=== PATIENT | female | born 1955 | race Caucasian/White ===

== ENCOUNTER 2021-07-15 13:08 | Day surgery (SDC) | payer OTHER, BC ==
[2021-07-11 10:16] VITALS: BMI 29.2
[2021-07-15 12:07] VITALS: TEMP 97.8
[2021-07-15 12:42] VITALS: BP 126/80; PULSE 70
[~2021-07-15 13:08] MED LIST: BUPIVACAINE HCL/PF 0.75% 10 ML VIAL NR ONE; IOHEXOL 180 MG/1 ML ML IJ ONE; LIDOCAINE 1% P/F 10 MG/ML VIAL INF ONE
== END 2021-07-15 13:30 | disposition home or self-care (01) ==
LOC: JASU-SURG 13:08
PROVIDERS: ATTEND Pain Medicine Pain Medicine
PROC: BR16YZZ Fluoroscopy of Lumbar Facet Joint(s) using Other Contrast (ICD-10-PCS; 2021-07-15)
PROC: 3E0T3BZ Introduction of Anesthetic Agent into Peripheral Nerves and Plexi, Percutaneous Approach (ICD-10-PCS; principal; 2021-07-15 12:30)
DX: M47.816 Spondylosis without myelopathy or radiculopathy, lumbar region (principal)
CPT/HCPCS: 76000-TC-FY; J1100

== ENCOUNTER 2022-08-01 04:18 | Day surgery (SDC) | payer OTHER ==
[2022-07-31 09:59] VITALS: BMI 27.4
[~2022-08-01 04:18] MED LIST changes: +ACETAMINOPHEN 500 MG TABLET (FP) PO ONE; -BUPIVACAINE HCL/PF 0.75% 10 ML VIAL NR ONE; -IOHEXOL 180 MG/1 ML ML IJ ONE; -LIDOCAINE 1% P/F 10 MG/ML VIAL INF ONE
[2022-08-01 10:25] VITALS: RESP 18
[2022-08-01] MEDS ORDERED: LIDOCAINE 1% P/F 10 MG/ML VIAL INF ONE (11:11)
[2022-08-01] MEDS ORDERED: TRIAMCINOLONE ACET 40MG/1ML VIAL IM ONE ×2 (11:12→11:14)
[2022-08-01] MEDS ORDERED: IOHEXOL 180 MG/1 ML ML IJ ONE (11:12)
[2022-08-01] MEDS ORDERED: BUPIVACAINE HCL/PF 0.5% (5MG/ML) 10 ML VIAL IJ ONE (11:12)
[2022-08-01 11:43] VITALS: BP 120/70; PULSE 60; TEMP 97
== END 2022-08-01 11:43 | disposition home or self-care (01) ==
LOC: JASU-SURG 04:18
PROVIDERS: ATTEND Pain Medicine Pain Medicine
PROC: 3E0U3BZ Introduction of Anesthetic Agent into Joints, Percutaneous Approach (ICD-10-PCS; 2022-08-01)
PROC: 3E0U33Z Introduction of Anti-inflammatory into Joints, Percutaneous Approach (ICD-10-PCS; principal; 2022-08-01 11:30)
DX: M53.3 Sacrococcygeal disorders, not elsewhere classified (principal)
CPT/HCPCS: 76000-TC-FY

== ENCOUNTER 2022-09-12 04:20 | Day surgery (SDC) | payer OTHER ==
[2022-09-06 17:15] VITALS: BMI 28.3
[~2022-09-12 04:20] MED LIST changes: -ACETAMINOPHEN 500 MG TABLET (FP) PO ONE; +BUPIVACAINE HCL/PF 0.75% 10 ML VIAL NR ONE
[2022-09-12] MEDS ORDERED: LIDOCAINE HCL/PF 1% SDV 5ML VIAL ONE (07:24)
[2022-09-12] MEDS ORDERED: BUPIVACAINE HCL/PF 0.75% 10 ML VIAL ONE (07:24)
[2022-09-12] MEDS ORDERED: LIDOCAINE HCL 1% PRESERVATIVE FREE - 30ML VIAL IJ ONE (11:44)
[2022-09-12] MEDS ORDERED: BUPIVACAINE HCL/PF 0.75% 10 ML VIAL NR ONE ×3 (11:48→11:50)
[2022-09-12] MEDS ORDERED: ACETAMINOPHEN 500 MG TABLET (FP) PO PRN (12:58)
[2022-09-12 14:32] VITALS: BP 115/72; PULSE 80; RESP 20; TEMP 97.8
== END 2022-09-12 12:13 | disposition home or self-care (01) ==
LOC: JASU-SURG 04:20
PROVIDERS: ATTEND Pain Medicine Pain Medicine
PROC: 3E0T33Z Introduction of Anti-inflammatory into Peripheral Nerves and Plexi, Percutaneous Approach (ICD-10-PCS; 2022-09-12)
PROC: 3E0T3BZ Introduction of Anesthetic Agent into Peripheral Nerves and Plexi, Percutaneous Approach (ICD-10-PCS; principal; 2022-09-12 11:45)
DX: M47.816 Spondylosis without myelopathy or radiculopathy, lumbar region (principal)
CPT/HCPCS: 76000-TC-FY